=== PATIENT | male | born 1965 | race Caucasian/White ===

== ENCOUNTER 2021-02-14 19:06 | Emergency (ER) | payer MEDICARE ==
[~2021-02-14] VITALS: Ht 195.6 cm; Wt 145.4 kg
[~2021-02-14 19:06] MED LIST: ALBU8.5H8 INH; AMIO200T27 PO; DOCU-148 PO; ENOX100S3 SQ; INSU100V43; LACT1CAP65 PO; NYSPWD TP; SYN0.088T PO; TIOT18CA3 IH
--- NOTE | 2021-02-14 19:41 | NUR ---
UROLOGIST AT BEDSIDE
[2021-02-14] MEDS ORDERED: morphine 4 MG/ML inj SYRINge IV ONE (19:45)
--- NOTE | 2021-02-14 19:48 | NUR ---
Urologist at bedside working with patient's catheter to replace it
--- NOTE | 2021-02-14 20:30 | NUR ---
Waiting for transport back to [facility]
[2021-02-14] MEDS ORDERED: DOBUTamine-DoBUTrex 500mg/D5W 250 ML IV SCH (21:55)
[2021-02-15 00:11] VITALS: BP 96/60
== END 2021-02-15 00:12 | disposition home or self-care (01) ==
LOC: ER 19:06
DX: I48.91 Unspecified atrial fibrillation (principal); I11.0 Hypertensive heart disease with heart failure; I50.9 Heart failure, unspecified; E78.00 Pure hypercholesterolemia, unspecified; J44.9 Chronic obstructive pulmonary disease, unspecified; Z88.1 Allergy status to other antibiotic agents; Z91.013 Allergy to seafood; Z91.041 Radiographic dye allergy status; Z79.899 Other long term (current) drug therapy
CPT/HCPCS: 96365; 96366; 96375; 99285; J1250; J2270

== ENCOUNTER 2021-02-15 08:47 | Emergency (ER) | payer MEDICARE ==
[~2021-02-15] VITALS: Ht 195.6 cm; Wt 153.0 kg
[2021-02-15] MEDS ORDERED: DOBUTamine-DoBUTrex 500mg/D5W 250 ML IV SCH (09:00)
--- NOTE | 2021-02-15 09:38 | NUR ---
Per Sherlyn, pt is on bipap prn. he is requesting. RT paged after discussing ayan montalvo.
--- NOTE | 2021-02-15 11:30 | NUR ---
Verbal order for Morphine 4mg iv and zofran 4mg IV once from Dr Holliday, urologist.
[2021-02-15] MEDS ORDERED: morphine 4 MG/ML inj SYRINge IV ONE (11:35)
[2021-02-15] MEDS ORDERED: ondansetron/PF 4mg/2ml inj IV ONE (11:35)
--- NOTE | 2021-02-15 11:48 | NUR ---
CPAP CHECK AND VITALS DONE FROM THE DOOR. PT GETTING DONTA BAUER PUT IN BY UROLOGIST. PT IN NO DISTRESS Addendum: 02/15/21 at 1149 by Magaly Gupta RT Amended: Links added.
--- NOTE | 2021-02-15 11:56 | NUR ---
DR OLSEN AT BEDSIDE, PLACED INDWELLING BAUER, PT TOLERATED WELL.
--- NOTE | 2021-02-15 12:26 | NUR ---
Awaiting [facility] transportation back to [facility]
[2021-02-15 13:33] VITALS: BP 137/72
== END 2021-02-15 13:37 | disposition home or self-care (01) ==
LOC: ER 08:47
DX: R33.9 Retention of urine, unspecified (principal); I48.91 Unspecified atrial fibrillation; I11.0 Hypertensive heart disease with heart failure; I50.9 Heart failure, unspecified; E78.00 Pure hypercholesterolemia, unspecified; J44.9 Chronic obstructive pulmonary disease, unspecified; Z88.1 Allergy status to other antibiotic agents; Z88.8 Allergy status to other drugs, medicaments and biological substances; Z91.040 Latex allergy status; Z91.013 Allergy to seafood; Z79.899 Other long term (current) drug therapy
CPT/HCPCS: 51702; 76857; 94660; 96365; 96366; 96375; 99285; J1250; J2270; J2405; 94760